=== PATIENT | female | born 1990 | race Caucasian/White ===

== ENCOUNTER 2017-04-05 20:49 | Emergency (ER) | payer OTHER ==
[~2017-04-05] VITALS: Ht 160 cm; Wt 59.0 kg
[~2017-04-05 20:49] MED LIST: AMOX500C25 PO; METH4TAB1 PO
[2017-04-05 21:37] VITALS: BP 110/70
--- NOTE | 2017-04-06 01:31 | NUR ---
PATIENT LEFT WITHOUT BEING SEEN BY DR. DR ACKERMAN. NO FURTHER CARE PROVIDED FOR PATIENT.
== END 2017-04-06 01:31 | disposition left against medical advice (07) ==
LOC: MED 20:49
CPT/HCPCS: 81025

== ENCOUNTER 2019-09-16 17:15 | Emergency (ER) | payer MEDICAID, OTHER ==
[~2019-09-16] VITALS: Ht 160 cm; Wt 64.0 kg
[2019-09-16 17:27] VITALS: BP 110/73
--- NOTE | 2019-09-16 17:30 | NUR ---
C/O INTERMITTENT ABDOMINAL CRAMPING TYPE PAIN X 1 WK LOWER BACK PAIN ---DENIES INJURY , NO VAG BLEED, OR DC SEEN IN [facility] 09/12/2019 DX UTI RX MACROBID REGLAN MACROBID CAUSING MORE ABDOMINAL CRAMPING AND LETHARGY PT BELIEVES,PT AWAKE ,ALERT, AMBULATORY WITH STEADY GAIT. A1--LMP 08/05/2019 HX---DENIES RX---REGLAN, MACROBID
--- NOTE | 2019-09-16 17:44 | NUR ---
JOSELUIS AT BEDSIDE
[2019-09-16 18:09] LABS: BILIRUBIN,URINE NEGATIVE (NEGATIVE); BLOOD, URINE TRACE-I (NEGATIVE); COLOR,URINE ORANGE (YELLOW); LEUKOCYTE ESTERASE ,URINE 1+ (NEGATIVE); NITRITE, URINE NEGATIVE (NEGATIVE); UGLUCOSE NEGATIVE (NEGATIVE)
[2019-09-16 18:30] LABS: APPEARANCE,URINE HAZY (CLEAR)
[2019-09-16 18:31] LABS: BASOPHILS % (AUTO) 0.1 % (0.0-2.0); EOSINOPHILS % (AUTO) 0.5 % (0.0-4.0); HEMATOCRIT 41.3 % (36-48); HEMOGLOBIN 13.7 g/dL (12.0-16.0); LYMPHOCYTES # (AUTO) 1.6 K/uL (2.5-16.5); LYMPHOCYTES % (AUTO) 20.5 % (20.5-51.1); MEAN CORPUSCULAR HEMOGLOBIN 29 pg (27-31); MEAN CORPUSCULAR HGB CONC 33 g/dL (33-37); MEAN CORPUSCULAR VOLUME 87.3 fL (80-94); MONOCYTES # (AUTO) 0.5 K/uL (0.8-1.0); MONOCYTES % (AUTO) 6.5 % (1.7-9.3); NEUTROPHILS # (AUTO) 5.6 K/uL (1.8-7.7); NEUTROPHILS % (AUTO) 72.4 % (42.2-75.2); PLATELET COUNT (AUTO) 135 K/uL (140-450); RED BLOOD CELL COUNT(AUTO) 4.73 MIL/uL (4.20-5.40); RED CELL DISTRIBUTION WIDTH 12.5 % (11.6-13.7); WHITE BLOOD COUNT (AUTO) 7.7 K/uL (4.8-10.8)
[2019-09-16 18:35] LABS: RBC,URINE 0-5 /HPF (0-5)
--- NOTE | 2019-09-16 19:26 | NUR ---
Report given to DIANA Moreno
[2019-09-16 19:30] VITALS: BP 112/71
--- NOTE | 2019-09-16 19:30 | NUR ---
Patient discharged with v/s stable. Written and verbal after care instructions given and explained. Patient alert, oriented and verbalized understanding of instructions. Ambulatory with steady gait. All questions addressed prior to discharge. ID band removed. Patient advised to follow up with PMD. Rx of MIRALAX POWDER given. Patient educated on indication of medication including possible reaction and side effects. Opportunity to ask questions provided and answered.
--- NOTE | 2019-09-16 19:30 | NUR ---
REPORT RECEIVED FROM DIANA DICKERSON.
== END 2019-09-16 19:30 | disposition home or self-care (01) ==
LOC: MED 17:15
DX: O23.41 Unspecified infection of urinary tract in pregnancy, first trimester (principal); O26.891 Other specified pregnancy related conditions, first trimester; K59.00 Constipation, unspecified; Z3A.01 Less than 8 weeks gestation of pregnancy; Z88.1 Allergy status to other antibiotic agents; Z88.8 Allergy status to other drugs, medicaments and biological substances
CPT/HCPCS: 36415; 76817; 81001; 81025; 84702; 85025; 86900; 86901; 87086; 99284; Q0092

== ENCOUNTER 2019-10-03 14:03 | Emergency (ER) | payer MEDICAID ==
[~2019-10-03] VITALS: Ht 160 cm; Wt 61.5 kg
[2019-10-03 14:55] VITALS: BP 107/68
--- NOTE | 2019-10-03 15:01 | NUR ---
PT ambulated to lobby at this time, VSS
--- NOTE | 2019-10-03 16:06 | NUR ---
PT AMBULATED TO ER BED 02
--- NOTE | 2019-10-03 16:08 | NUR ---
29 Y/O F C/O VAGINAL BLEEDING TODAY. PT IS 8 WK , STATED SHE NOTICED BLOOD WHEN SHE WIPED TODAY. PT HAD BACK PAIN OFF AN ON X1 DAY. PT STATES SHE IS HAVING DIFFICULTY KEEPING FOOD/DRINK DOWN AND HAS BEEN VOMITING X1 WEEK. PT POSITIONED FOR COMFORT, X1 SIDE RAIL IN PLACE. PT MOTHER AT BEDSIDE. [facility] MED HX: NONE
[2019-10-03 16:11] LABS: APPEARANCE,URINE SL CLOUDY (CLEAR); BILIRUBIN,URINE 1+ (NEGATIVE); BLOOD, URINE TRACE-I (NEGATIVE); COLOR,URINE YELLOW (YELLOW); LEUKOCYTE ESTERASE ,URINE 1+ (NEGATIVE); NITRITE, URINE NEGATIVE (NEGATIVE); UGLUCOSE NEGATIVE (NEGATIVE)
[2019-10-03 16:12] LABS: BASOPHILS % (AUTO) 0.4 % (0.0-2.0); EOSINOPHILS % (AUTO) 0.3 % (0.0-4.0); HEMATOCRIT 41.8 % (36-48); LYMPHOCYTES # (AUTO) 1.2 K/uL (2.5-16.5); LYMPHOCYTES % (AUTO) 14.7 % (20.5-51.1); MEAN CORPUSCULAR HEMOGLOBIN 29 pg (27-31); MEAN CORPUSCULAR HGB CONC 33 g/dL (33-37); MEAN CORPUSCULAR VOLUME 87.4 fL (80-94); MONOCYTES # (AUTO) 0.6 K/uL (0.8-1.0); MONOCYTES % (AUTO) 6.9 % (1.7-9.3); NEUTROPHILS # (AUTO) 6.2 K/uL (1.8-7.7); NEUTROPHILS % (AUTO) 77.7 % (42.2-75.2); PLATELET COUNT (AUTO) 165 K/uL (140-450); RED BLOOD CELL COUNT(AUTO) 4.79 MIL/uL (4.20-5.40); RED CELL DISTRIBUTION WIDTH 12.8 % (11.6-13.7)
[2019-10-03 16:22] LABS: RBC,URINE 0-5 /HPF (0-5)
--- NOTE | 2019-10-03 16:55 | NUR ---
PT INFORMED MD WILL BE WITH HER SOON. PT RESTING COMFORTABLY, MOTHER AT BEDSIDE.
--- NOTE | 2019-10-03 17:08 | NUR ---
ULTRASOUND AT BEDSIDE.
--- NOTE | 2019-10-03 18:23 | NUR ---
Aide wagner in [facility] - 10/03/19 at [address] [facility] [address] PATTERSON AT BEDSIDE EXAMINING PATIENT.
--- NOTE | 2019-10-03 19:25 | NUR ---
RHOGAM 300MCG INJECTION GIVEN RT GLUTE AFTER CONSENT SIGNED. PT TOLERATED WELL.
--- NOTE | 2019-10-03 19:26 | NUR ---
Patient discharged with v/s stable. Written and verbal after care instructions given and explained. Patient verbalized understanding. Ambulatory with steady gait. All questions addressed prior to discharge. Advised to follow up with PMD.
[2019-10-03 19:27] VITALS: BP 107/68
== END 2019-10-03 19:26 | disposition home or self-care (01) ==
LOC: MED 14:03
DX: O20.8 Other hemorrhage in early pregnancy (principal); Z3A.08 8 weeks gestation of pregnancy; Z79.899 Other long term (current) drug therapy; Z79.2 Long term (current) use of antibiotics
CPT/HCPCS: 36415; 76817; 81001; 81025; 84702; 85025; 86886; 86900; 86901; 87086; 99284; J2790; Q0092

== ENCOUNTER 2020-01-13 21:59 | Emergency (ER) | payer BC, MEDICAID ==
[~2020-01-13] VITALS: Ht 162.6 cm; Wt 60.3 kg
--- NOTE | 2020-01-13 22:08 | NUR ---
PT TAKEN TO BED 1
[2020-01-13 22:10] VITALS: BP 120/74
--- NOTE | 2020-01-13 22:30 | NUR ---
.PT CAME IN TO ER WITH C/O COUGH AND SORE THROAT X 2 DAYS. PT DENIES FEVER, N/V/D AT THIS TIME. PT IS ALERT AND ABLE TO ANSWER QUESTIONS APPROPRIATELY. PT IS , LMP IS AT 10-27-19. PER PT IS 23 WEEKS . ERMD MADE AWARE OF STATUS, SAFETY MEASURES IN PLACE. CONTINUE TO MONITOR
--- NOTE | 2020-01-13 22:38 | NUR ---
CALLED L&D RN TO REQUEST HEART MONITORING. SPOKE WITH JOSE MARTIN. TOLD WILL SEND SOMEONE OVER
[2020-01-13] MEDS ORDERED: diphenhydrAMINE 12.5 MG/5 ML UDC PO ONE (22:45)
--- NOTE | 2020-01-13 23:04 | NUR ---
L&D RN AT BEDSIDE
--- NOTE | 2020-01-14 00:05 | NUR ---
HEART RATE COMPLETED. HEART RATE 145 AND COMPLETED OVER 30 MIN.
[2020-01-14 00:12] VITALS: BP 110/76
--- NOTE | 2020-01-14 00:12 | NUR ---
Patient discharged with v/s stable. She states relief. Written and verbal after care instructions given and explained. Patient alert, oriented and verbalized understanding of instructions. Ambulatory with steady gait. All questions addressed prior to discharge. ID band removed. Patient advised to follow up with PMD. Rx of Diphenhydramine given. Patient educated on indication of medication including possible reaction and side effects. Opportunity to ask questions provided and answered.
== END 2020-01-14 00:12 | disposition home or self-care (01) ==
LOC: MED 21:59
DX: O26.892 Other specified pregnancy related conditions, second trimester (principal); R06.00 Dyspnea, unspecified; Z3A.23 23 weeks gestation of pregnancy
CPT/HCPCS: 99283; Q0163